=== PATIENT | male | born 1975 | race Asian ===

== ENCOUNTER 2017-10-04 03:23 | Emergency (ER) | payer SELFPAY ==
[~2017-10-04] VITALS: Ht 170.2 cm; Wt 68.0 kg
[2017-10-04 03:28] VITALS: BP_SYST 134
[2017-10-04 03:36] VITALS: BP_SYST 134
== END 2017-10-04 03:36 ==
LOC: SED 03:23
DX: Z04.1 Encounter for examination and observation following transport accident (principal); F10.10 Alcohol abuse, uncomplicated; Y90.9 Presence of alcohol in blood, level not specified; V89.2XXA Person injured in unspecified motor-vehicle accident, traffic, initial encounter; Y93.89 Activity, other specified; Y92.89 Other specified places as the place of occurrence of the external cause; Y99.8 Other external cause status
CPT/HCPCS: 99283